=== PATIENT | female | born 1990 | race Caucasian/White ===

== ENCOUNTER → 2017-07-17 | Outpatient (CLI) | payer BC | LOC: COL.RAD 10:13 | DX: E04.9 Nontoxic goiter, unspecified (principal) ==

== ENCOUNTER 2019-11-07 07:03 | Inpatient (IN) | payer BC ==
[~2019-11-07] VITALS: Ht 157.5 cm; Wt 102.3 kg
[2019-11-07] VITALS (42 sets, daily range): BP systolic 107–158; BP diastolic 54–95; PULSE 83–137; TEMP 98–99
[~2019-11-07 07:03] MED LIST: COLACE 100100 MG/CAP PO; PRENATAL; PROCARDIA XL 3030 MG PO; PROCARDIA XL90 MG PO; VITAMIN D 1001000 IU; VITAMIN D 1001000 IU PO
--- NOTE | 2019-11-07 07:12 | NUR ---
0712-Patient ambulatory to LR 4 for scheduled induction of labor. Denies contractions, leaking of fluid or vaginal bleeding. Reports good movmement. Patient assisted into gown and placed on EFM, BP 142/87. Assessment complete. Updated on induction plan of care. IV to left hand. Blood collected and sent to lab. LR infusing per MD orders. Pen #1 given per GBS protocol, see EMAR. Consenets reviewed and signed. 08-Dr. Garcia notified of patients arrival, confirmed orders. Pitocin started per MD order. 08-Dr. Garcia on unit. Reviews strip. In to see patient. 0815-SVE by /-2 AROM clear fluid.
[2019-11-07] MEDS ORDERED: NATURAL IRON65 MG (07:49)
--- NOTE | 2019-11-07 08:50 | NUR ---
[id number] Contractions tracing every 1-2 min, FHR remains reactive. Pitocin decreased from 6mu/min to 2mu/min at 0907. 1017-Patient off EFM to bathroom, Voids 150ml clear yellow urine. Returns to bedside standing. 1035-Back to bed WL. 1040-Pitocin increased to 4mu/min see flow record
[2019-11-07 10:01] LABS: BASO % 0.2 % (0.0-2.0); EOS % 0.3 % (0-4.0); GRAN # 8.7 (1.4-6.5); GRAN % 75.6 % (42.2-75.2); HEMATOCRIT 37.6 % (37.0-47.0); HEMOGLOBIN 12.7 g/dl (12.5-16.0); LYMPH # 2.2 (1.2-3.4); LYMPH % 19.1 % (20.0-51.0); MEAN CELL VOLUME 82 fl (80.0-100.0); MEAN CORPUSCULAR HEMOGLOBIN 28 pg (27.0-31.0); MEAN CORPUSCULAR HGB CONC 34 g/dl (33.0-37.0); MEAN PLATELET VOLUME 11.1 fl (7.4-10.4); MONO # 0.5 (0.1-0.6); MONO % 4.3 % (1.7-9.3); PLATELET COUNT 328 K/mm3 (130-400); RED BLOOD COUNT 4.57 M/mm3 (4.10-5.30); REDCELL DISTRIBUTION WIDTH-CV 14.2 % (11.5-14.5)
--- NOTE | 2019-11-07 11:50 | NUR ---
1150-PATRICK Carter notified of patients desire for an epidural. 1152-Dr. Garcia to unit to see patient. No new orders
--- NOTE | 2019-11-07 12:13 | NUR ---
1200-PATRICK Carter to room. Patient sitting upright on bedside for epidural placement. Difficulty tracing FHR due to maternal habitus and position. 1213-SS administered by PATRICK Carter, see anesthesia notes. Epidural removed by PATRICK Carter for blood return noticed in epidural catheter. Patient tolerates procedure well, VSS. FHR remains difficult to trace due to maternal positioining and habitus. 1226-SS adminsitered in new epidural by PATRICK Carter. Patient tolerates well. See anesthesia notes. 1238-Patient WL. Updated on safety and plan of care.
--- NOTE | 2019-11-07 14:20 | NUR ---
1420-SVE 10/100/+1, Notified Dr. Garcia, Orders to begin pushing. 1440-Patient begins pushing with RN at bedside. Moves vertex well. 1453-FHR decel down to 110bpm with slow return to baseline. Patient LL and instructed to breath through next two contractions. 1500-Patient begins pushing with RN at bedside. FHR without decel. Moves vertex well. 1512-FHR decel following contraction and pushing efforts. Remains down over 3 min period. 1517-Dr. Garcia notified of FHR decel and maternal pushing efforts. Requested for delivery 1525-Dr. Garcia on unit. Patient prepped for delivery. 1530-Patient begins pushing with MD at bedside. Moves vertex well. 1542-Spontaneous delivery of head loose nuchal x1 body delivered through with assistance from MD. Viable male infant to mothers aboloren, Care of infant assumed by FAISAL Schwab. Apgars 8/9/9. 1545-Spontaneous delivery of intact placenta by . Brittany WNL. Fundal massage slow to firm with initial massage. RN continues to massage and fundus firms. Pitocin bolus per MD order and protocol. Second degree reapaired by MD. Maria A care provided, Updated on safety and plan of care.
--- NOTE | 2019-11-07 18:56 | NUR ---
1800-Patient easily voids 700ml clear yellow urine on bedpan. Perineum swollen. Ice appllied to perineum.
[2019-11-08 01:30] VITALS: BP 117/67; PULSE 93
[2019-11-08 08:15] VITALS: BP 128/64; PULSE 104; TEMP 97.6
--- NOTE | 2019-11-08 08:15 | NUR ---
Rests in rocking chair holding baby. States baby sleepy. Let her know ways of waking baby up next feeding. Request pain medication. States will wait for next motrin.
[2019-11-08] MEDS ORDERED: MOTRIN 800800 MG/TAB PO (08:59)
[2019-11-08] MEDS ORDERED: PERCOCET 325 MG1 TA2 PO (08:59)
--- NOTE | 2019-11-08 09:28 | NUR ---
Request pain medication. Ibuprofen 800 mg given per request and as ordered.
[2019-11-08 12:15] VITALS: BP 120/66; PULSE 87; TEMP 97.9
[2019-11-08 16:30] VITALS: BP 115/68; PULSE 93; TEMP 98.3
[2019-11-08 19:00] VITALS: BP 118/67; PULSE 95; TEMP 98
[2019-11-09 09:25] VITALS: BP 128/74; PULSE 97; TEMP 97.7
== END 2019-11-09 12:00 | disposition home or self-care (01) | DRG 807 ==
LOC: OB 07:03 → LDR 07:03 → OB 16:36
PROVIDERS: ADMIT Obstetrics & Gynecology
PROC: 10E0XZZ Delivery of Products of Conception, External Approach (ICD-10-PCS; principal; 2019-11-07)
PROC: 0KQM0ZZ Repair Perineum Muscle, Open Approach (ICD-10-PCS; 2019-11-07)
PROC: 10907ZC Drainage of Amniotic Fluid, Therapeutic from Products of Conception, Via Natural or Artificial Opening (ICD-10-PCS; 2019-11-07)
PROC: 3E033VJ Introduction of Other Hormone into Peripheral Vein, Percutaneous Approach (ICD-10-PCS; 2019-11-07)
DX: O10.92 Unspecified pre-existing hypertension complicating childbirth (principal); Z37.0 Single live birth; Z3A.39 39 weeks gestation of pregnancy; O69.81X0 Labor and delivery complicated by cord around neck, without compression, not applicable or unspecified; O70.1 Second degree perineal laceration during delivery; O99.824 Streptococcus B carrier state complicating childbirth
CPT/HCPCS: J2540; J2590; J7120

== ENCOUNTER → 2020-02-13 | Outpatient (CLI) | payer BC ==
[~2020-02-13] MED LIST changes: +MOTRIN 800800 MG/TAB PO; +NATURAL IRON65 MG; +PERCOCET 325 MG1 TA2 PO
== END ==
LOC: COL.RAD 08:48
DX: R11.11 Vomiting without nausea (principal)

== ENCOUNTER → 2020-06-08 | Outpatient (CLI) | payer BC | LOC: COL.RAD 10:15 | DX: K80.20 Calculus of gallbladder without cholecystitis without obstruction (principal) ==